=== PATIENT | male | born 1970 | race Caucasian/White ===

== ENCOUNTER 2017-12-29 22:39 | Emergency (ER) | payer BC ==
--- NOTE | 2017-12-29 23:00 | Emergency Department Record ---
History of Present Illness - General Chief complaint: Pain Stated complaint: SHOULDER INJURY Time Seen by Provider: 12/29/17 22:41 Source: Patient Mode of Arrival: Ambulatory Limitations: No limitations - History of Present Illness Initial comments: 47 yo male presents to ED for evaluation of left shoulder pain symptoms that began 1 week ago. Patient reports that he performs a lot of lifting at work of parts above his head, reports that he may have injured the shoulder while at work. Patient denies weakness to the extremity, numbness, or tingling. Patient denies health problems at his baseline. MD Complaint: Joint pain Onset/Timin -: Week(s) Location: Left, Shoulder Severity scale (1-10): 8 Quality: Aching Consistency: Constant Improves with: Nothing Worsens with: Nothing - Related Data Previous Rx's Medication Instructions Recorded Ibuprofen [Motrin] 800 mg PO Q6H PRN #30 tab 12/29/17 Allergies Allergy/AdvReac Type Severity Reaction Status Date / Time No Known Drug Allergies Allergy Verified 12/29/17 22:47 Travel Screening - Travel/Exposure Within Last 30 Days Have you traveled within the last 30 days?: No Review of Systems Constitutional: Denies: Chills, Fever, Malaise, Night sweats Eyes: Denies: Eye discharge, Eye pain ENT: Denies: Congestion, Ear pain, Epistaxis Respiratory: Denies: Cough, Dyspnea Cardiovascular: Denies: Chest pain, Dyspnea on exertion Endocrine: Denies: Fatigue, Heat or cold intolerance Gastrointestinal: Denies: Abdominal pain, Nausea, Vomiting Genitourinary: Denies: Incontinence, Retention Musculoskeletal: Reports: Arthralgia. Denies: Back pain, Gout, Joint swelling Skin: Denies: Bruising, Change in color Neurological: Denies: Abnormal gait, Confusion, Headache, Seizure Psychiatric: Denies: Anxiety Hematological/Lymphatic: Denies: Anemia, Blood Clots Past Medical History - SOCIAL HISTORY Smoking Status: Current every day smoker Alcohol Use: None Drug Use: None - RESPIRATORY Hx Respiratory Disorders: No - CARDIOVASCULAR Hx Cardio Disorders: No - NEURO Hx Neuro Disorders: No - GI Hx GI Disorders: No - Hx Genitourinary Disorders: No - ENDOCRINE Hx Endocrine Disorders: No - MUSCULOSKELETAL Hx Musculoskeletal Disorders: No - PSYCH Hx Psych Problems: No - HEMATOLOGY/ONCOLOGY Hx Hematology/Oncology Disorders: No Family Medical History Any Significant Family History?: No Hx Cancer: Father Hx Diabetes: Mother Physical Exam - General General Appearance: Alert, Oriented x3, Cooperative, No acute distress Limitations: No limitations - Head Head exam: Atraumatic, Normocephalic, Normal inspection Head exam detail: negative: Abrasion, Contusion, Crain's sign, General tenderness, Hematoma, Laceration - Eye Eye exam: Normal appearance. negative: Conjunctival injection, Periorbital swelling, Periorbital tenderness, Scleral icterus - ENT Ear exam: negative: Auricular hematoma, Auricular trauma Nasal Exam: negative: Active bleeding, Discharge, Dried blood, Foreign body Mouth exam: negative: Drooling, Laceration, Tongue elevation - Neck Neck exam: Normal inspection. negative: Meningismus, Tenderness - Respiratory Respiratory exam: Normal lung sounds bilaterally. negative: Rales, Respiratory distress, Rhonchi, Stridor - Cardiovascular Cardiovascular Exam: Regular rate, Normal rhythm, Normal heart sounds Peripheral Pulses: 3+: Radial (L) - GI/Abdominal GI/Abdominal exam: Soft. negative: Rebound, Rigid, Tenderness - Rectal Rectal exam: Deferred - exam: Deferred - Extremities Extremities exam: Full ROM, Other (Mild crepitation with ROM, FROM actively, strong DPP). negative: Calf tenderness, Pedal edema, Tenderness - Back Back exam: Denies: CVA tenderness (R), CVA tenderness (L) - Neurological Neurological exam: Alert, Normal gait, Oriented X3 - Psychiatric Psychiatric exam: Normal affect, Normal mood - Skin Skin exam: Normal color. negative: Abrasion Type of lesion: negative: abrasion Course Vital Signs 12/29/17 22:45 Temperature 97.8 F Pulse Rate [ 83 Pulse Ox Probe] Respiratory 20 Rate Blood Pressure 128/91 [Left Arm] Pulse Ox 97 - Reevaluation(s) Reevaluation #1: 12/29/17 23:13 Left shoulder: Mild degenerative changes, nothing acute. Patient was updated on his radiology results, recommended Motrin 800 mg as needed as well as reduction in overhead at work. Patient agrees with the plan of care as directed. 12/29/17 23:14 Disposition Disposition: Discharge Clinical Impression: Shoulder pain, acute Qualifiers: Laterality: left Qualified Code(s): M25.512 - Pain in left shoulder Disposition: Home, Self-Care Condition: (2) Stable Instructions: Shoulder Pain (ED) Additional Instructions: Return to ED if your symptoms worsen or if you have any concerns. Motrin 800 mg as needed for pain. Decrease overhead extremity use at work. Follow-up with employee health in 1-3 days as directed. Prescriptions: Ibuprofen [Motrin] 800 mg PO Q6H PRN #30 tab PRN Reason: Pain - Moderate (5-7) Forms: Patient Portal Access Time of Disposition: 23:00 Quality - Quality Measures Quality Measures: N/A - Blood Pressure Screening Does Patient Have Any of the Following: No Blood Pressure Classification: Hypertensive Reading Systolic Measurement: 128 Diastolic Measurement: 91 Screening for High Blood Pressure: < First Hypertensive BP, F/U Documented > [ G8950] First Hypertensive Follow-up Interventions: Referral to alternative/primary care provider.
[2017-12-29] MEDS ORDERED: IBUPROFEN 400 MG TABLET PO ONE (23:24)
--- NOTE | 2017-12-31 14:48 | RADIOLOGY REPORT ---
EXAM: LEFT SHOULDER HISTORY: PAIN. TECHNIQUE: Three views of the left shoulder were performed. FINDINGS: No evidence of fracture or dislocation. No lytic or blastic lesion. IMPRESSION: NEGATIVE LEFT SHOULDER EXAMINATION. JOB NUMBER: [id number] [facility]
== END 2017-12-29 23:27 | disposition home or self-care (01) ==
LOC: ER 22:39
DX: M25.512 Pain in left shoulder (principal); F17.210 Nicotine dependence, cigarettes, uncomplicated
CPT/HCPCS: 99283

== ENCOUNTER 2018-01-13 17:06 | Emergency (ER) | payer BC ==
--- NOTE | 2018-01-13 18:48 | Emergency Department Record ---
History of Present Illness - General Chief complaint: Pain Stated complaint: LT SHOULDER PAIN Time Seen by Provider: 01/13/18 18:41 Mode of Arrival: Ambulatory - History of Present Illness Initial comments: left shoulder pain and it has been going on for three weeks and seen both in ED and xray negative for fracture and seen at [facility] care and he is motrin 800 three times a day. Onset/Timin -: Week(s) Location: Left, Shoulder - Related Data Home Medications Medication Instructions Recorded Confirmed Last Taken Ibuprofen [Motrin] 800 mg PO Q6H PRN 01/13/18 01/13/18 01/13/18 08:00 Previous Rx's Medication Instructions Recorded Cyclobenzaprine HCl [Flexeril] 10 mg PO TID #30 tablet 01/13/18 Allergies Allergy/AdvReac Type Severity Reaction Status Date / Time No Known Drug Allergies Allergy Unverified 01/08/18 17:50 Travel Screening - Travel/Exposure Within Last 30 Days Have you traveled within the last 30 days?: No - Travel/Exposure Within Last Year Have you traveled outside the [place] in the last year?: No - Additonal Travel Details Have you been exposed to anyone with a communicable illness?: No - Travel Symptoms Symptom Screening: None Review of Systems Reviewed: No additional complaints except as noted below Constitutional: Reports: As per HPI. Denies: Chills, Fever, Malaise, Night sweats, Weakness, Weight change Eyes: Reports: As per HPI. Denies: Eye discharge, Eye pain, Photophobia, Vision change ENT: Reports: As per HPI. Denies: Congestion, Dental pain, Ear pain, Epistaxis , Hearing loss, Throat pain Respiratory: Reports: As per HPI. Denies: Cough, Dyspnea, Hemoptysis, Stridor, Wheezes Cardiovascular: Reports: As per HPI. Denies: Arrhythmia, Chest pain, Dyspnea on exertion, Edema, Murmurs, Orthopnea, Palpitations, Paroxysmal nocturnal dyspnea, Rheumatic Fever, Syncope Endocrine: Reports: As per HPI. Denies: Fatigue, Heat or cold intolerance, Polydipsia, Polyuria Gastrointestinal: Reports: As per HPI. Denies: Abdominal pain, Constipation, Diarrhea, Hematemesis, Hematochezia, Melena, Nausea, Vomiting Genitourinary: Reports: As per HPI. Denies: Dysuria, Frequency, Hematuria, Incontinence, Retention, Testicular pain, Testicular mass, Urgency Musculoskeletal: Reports: As per HPI. Denies: Arthralgia, Back pain, Gout, Joint swelling, Myalgia, Neck pain Skin: Reports: As per HPI. Denies: Bruising, Change in color, Change in hair/ nails, Lesions, Pruritus, Rash Neurological: Reports: As per HPI. Denies: Abnormal gait, Confusion, Headache, Numbness, Paresthesias, Seizure, Tingling, Tremors, Vertigo, Weakness Psychiatric: Reports: As per HPI. Denies: Anxiety, Auditory hallucinations, Depression, Homicidal thoughts, Suicidal thoughts, Visual hallucinations Hematological/Lymphatic: Reports: As per HPI. Denies: Anemia, Blood Clots, Easy bleeding, Easy bruising, Swollen glands Past Medical History - SOCIAL HISTORY Smoking Status: Current every day smoker Alcohol Use: None Drug Use: None - RESPIRATORY Hx Respiratory Disorders: No - CARDIOVASCULAR Hx Cardio Disorders: No - NEURO Hx Neuro Disorders: No - GI Hx GI Disorders: No - Hx Genitourinary Disorders: No - ENDOCRINE Hx Endocrine Disorders: No - MUSCULOSKELETAL Hx Musculoskeletal Disorders: No - PSYCH Hx Psych Problems: No - HEMATOLOGY/ONCOLOGY Hx Hematology/Oncology Disorders: No Family Medical History Any Significant Family History?: Yes Hx Cancer: Father Hx Diabetes: Mother Physical Exam - General General Appearance: Alert, Oriented x3, Cooperative, No acute distress - Head Head exam: Normal inspection - Eye Eye exam: Normal appearance, PERRL Pupils: Normal accommodation - ENT ENT exam: Normal exam, Mucous membranes moist, Normal external ear exam, Normal orophraynx, TM's normal bilaterally Ear exam: Normal external inspection. negative: External canal tenderness Nasal Exam: Normal inspection. negative: Discharge, Sinus tenderness Mouth exam: Normal external inspection, Tongue normal Teeth exam: Normal inspection. negative: Dental caries Throat exam: Normal inspection. negative: Tonsillar erythema, Tonsillar exudate - Neck Neck exam: Normal inspection, Full ROM. negative: Tenderness - Respiratory Respiratory exam: Normal lung sounds bilaterally. negative: Respiratory distress - Cardiovascular Cardiovascular Exam: Regular rate, Normal rhythm, Normal heart sounds - GI/Abdominal GI/Abdominal exam: Soft, Normal bowel sounds. negative: Tenderness - Rectal Rectal exam: Deferred - exam: Deferred - Extremities Extremities exam: Normal inspection, Full ROM, Normal capillary refill. negative: Tenderness - Back Back exam: Reports: Normal inspection, Full ROM. Denies: Muscle spasm, Rash noted, Tenderness - Neurological Neurological exam: Alert, Normal gait, Oriented X3, Reflexes normal - Psychiatric Psychiatric exam: Normal affect, Normal mood - Skin Skin exam: Dry, Intact, Normal color, Warm Course Vital Signs 01/13/18 18:20 Temperature 98.0 F Pulse Rate [ 80 Pulse Ox Probe] Respiratory 20 Rate Blood Pressure 121/76 [Left Arm] Pulse Ox 95 Disposition Clinical Impression: Left shoulder pain Qualifiers: Chronicity: acute Qualified Code(s): M25.512 - Pain in left shoulder Left shoulder strain Qualifiers: Encounter type: initial encounter Qualified Code(s): S46.912A - Strain of unspecified muscle, fascia and tendon at shoulder and upper arm level, left arm , initial encounter Disposition: Home, Self-Care Condition: (1) Good Instructions: Muscle Strain (ED) Additional Instructions: follow up with family in 1 week continue motrin three times a day Prescriptions: Cyclobenzaprine HCl [Flexeril] 10 mg PO TID #30 tablet Time of Disposition: 18:51 Quality - Quality Measures Quality Measures: N/A - Blood Pressure Screening Does Patient Have Any of the Following: No Blood Pressure Classification: Pre-Hypertensive BP Reading Systolic Measurement: 121 Diastolic Measurement: 76 Screening for High Blood Pressure: < Pre-Hypertensive BP, F/U Documented > [ G8950] Pre-Hypertensive Follow-up Interventions: Referral to alternative/primary care provider.
== END 2018-01-13 19:16 | disposition home or self-care (01) ==
LOC: ER 17:06
DX: S46.912A Strain of unspecified muscle, fascia and tendon at shoulder and upper arm level, left arm, initial encounter (principal); X58.XXXA Exposure to other specified factors, initial encounter; F17.210 Nicotine dependence, cigarettes, uncomplicated
CPT/HCPCS: 99282

== ENCOUNTER 2018-05-23 17:22 | Emergency (ER) | payer SELFPAY ==
--- NOTE | 2018-05-23 18:03 | Emergency Department Record ---
History of Present Illness - General Chief Complaint: Cough Stated Complaint: LOSS OF VOICE AFTER COUGHING,DIZINESS,HEADACHE Time Seen by Provider: 05/23/18 17:41 Source: Patient Mode of Arrival: Ambulatory Limitations: No limitations - History of Present Illness Initial Comments: 47 yo male presents with three weeks of fatigue and horse voice. He states he was eating meat 3 weeks ago. He choked on the meat but was abut to spit it out. Since then his voice has been hoarse. No shortness of breath, no choking again, no pain. He is able to eat normally and swallow normally. No fever. He is fatigued as well. He was told to have his CO level checks by the [employer]. They charge $80 to check the house so he decided to come to the ED. No syncope, no chest pain. His SO is in the ED as well. Complaint: Other Onset/Timin -: Days(s) Severity: Mild Consistency: Constant Improves With: Nothing Worsens With: Nothing Context: Other Associated Symptoms: Other Treatments Prior to Arrival: None - Related Data Home Medications Medication Instructions Recorded Confirmed Last Taken No Home Med [NO HOME MEDS] 05/23/18 05/23/18 Unknown Allergies Allergy/AdvReac Type Severity Reaction Status Date / Time No Known Drug Allergies Allergy Unverified 01/08/18 17:50 Travel Screening - Travel/Exposure Within Last 30 Days Have you traveled within the last 30 days?: No Review of Systems Constitutional: Reports: Malaise. Denies: Chills, Fever, Weakness Eyes: Denies: Eye discharge ENT: Reports: Other (no pain, hoarse voice). Denies: Congestion, Dental pain, Ear pain, Epistaxis, Throat pain Respiratory: Denies: Cough Cardiovascular: Denies: Chest pain, Syncope Endocrine: Reports: Fatigue. Denies: Polydipsia, Polyuria Gastrointestinal: Denies: Abdominal pain, Diarrhea, Nausea, Vomiting Genitourinary: Denies: Dysuria, Frequency Musculoskeletal: Denies: Arthralgia, Back pain, Myalgia Skin: Denies: Bruising, Change in color, Rash Neurological: Denies: Confusion, Headache, Weakness Psychiatric: Denies: Anxiety Hematological/Lymphatic: Denies: Easy bleeding, Easy bruising Past Medical History - SOCIAL HISTORY Smoking Status: Current every day smoker - RESPIRATORY Hx Respiratory Disorders: No - CARDIOVASCULAR Hx Cardio Disorders: No - NEURO Hx Neuro Disorders: No - GI Hx GI Disorders: No - Hx Genitourinary Disorders: No - ENDOCRINE Hx Endocrine Disorders: No - MUSCULOSKELETAL Hx Musculoskeletal Disorders: No - PSYCH Hx Psych Problems: No - HEMATOLOGY/ONCOLOGY Hx Hematology/Oncology Disorders: No Family Medical History Any Significant Family History?: Yes Hx Cancer: Father Hx Diabetes: Mother Physical Exam - General General Appearance: Alert, Oriented x3, Cooperative, No acute distress Limitations: No limitations - Head Head exam: Atraumatic, Normocephalic, Normal inspection - Eye Eye exam: Normal appearance, PERRL. negative: Conjunctival injection, Scleral icterus - ENT ENT exam: Normal exam, Mucous membranes moist Ear exam: Normal external inspection Nasal Exam: Normal inspection Mouth exam: Normal external inspection, Tongue normal, Other (mild hoarse voice , easy to understand). negative: Drooling, Laceration, Muffled voice, Tongue elevation Teeth exam: Normal inspection Throat exam: Normal inspection. negative: Tonsillar erythema, Tonsillomegaly, Tonsillar exudate, R peritonsillar mass, L peritonsillar mass - Neck Neck exam: Normal inspection, Full ROM. negative: Tenderness - Respiratory Respiratory exam: Normal lung sounds bilaterally. negative: Accessory muscle use, Chest wall tenderness, Decreased breath sounds, Prolonged expiratory, Respiratory distress, Rhonchi, Stridor, Wheezes - Cardiovascular Cardiovascular Exam: Regular rate, Normal rhythm, Normal heart sounds - GI/Abdominal GI/Abdominal exam: Soft - Extremities Extremities exam: Normal inspection - Neurological Neurological exam: Alert, Oriented X3 - Psychiatric Psychiatric exam: Normal affect, Normal mood - Skin Skin exam: Dry, Intact, Normal color, Warm Course Vital Signs 05/23/18 17:31 Temperature 98.8 F Pulse Rate 85 Respiratory 18 Rate Blood Pressure 115/74 Pulse Ox 96 - Reevaluation(s) Reevaluation #1: 05/23/18 18:03 Normal vitals on review 05/23/18 18:40 Soft tissue neck is negative Awaiting labs 05/23/18 18:51 No acute changes on the CBC 05/23/18 19:16 7.5 CO in a pack per day smoker. This mildly elevated but normal for a smoker Medical Decision Making - Lab Data Result diagrams: 05/23/18 18:10 05/23/18 18:10 Disposition Disposition: Discharge Clinical Impression: Dysphonia Fatigue Qualifiers: Fatigue type: unspecified Qualified Code(s): R53.83 - Other fatigue Disposition: Home, Self-Care Condition: (1) Good Instructions: Fatigue (ED) Additional Instructions: Call the number provided for a new family doctor Return if worse, cough, short of breath or any new concerns Referrals: SIERRA GO [MEDICAL DOCTOR] - Forms: Patient Portal Access Time of Disposition: 19:35 Quality - Quality Measures Quality Measures: N/A - Blood Pressure Screening Does Patient Have Any of the Following: No Blood Pressure Classification: Normal BP Reading Systolic Measurement: 115 Diastolic Measurement: 74 Screening for High Blood Pressure: < Normal BP, F/U Not Required > [G8783]
[2018-05-23 18:45] LABS: BASO % 0.3 % (0-6); EOS % 1.4 % (0-6); GRAN % 68.2 % (47-80); HEMATOCRIT 47.9 % (42.0-52.0); HEMOGLOBIN 17.4 gm/dl (14.0-18.0); MEAN CELL VOLUME 93.4 fl (81-97); MEAN CORPUSCULAR HEMOGLOBIN 33.9 pg (27-33); MEAN CORPUSCULAR HGB CONC 36.3 g/dl (32-36); MEAN PLATELET VOLUME 10.5 fl (7.4-10.4); MONO % 8.1 % (0-9); PLATELET COUNT 140 K/uL (130-400); RED BLOOD COUNT 5.13 M/uL (4.40-5.70); RED CELL DISTRIBUTION WIDTH 12.5 % (11.5-14.5); WHITE BLOOD COUNT W/O DIFF 11.8 K/uL (4.2-12.2)
[2018-05-23 18:58] LABS: BLOOD UREA NITROGEN 10 mg/dL (6-20); CREATININE 0.7 mg/dL (0.7-1.2); EST GLOMERULAR FILTRATION RATE > 60 mL/min; TOTAL PROTEIN 6.9 g/dL (6.6-8.7)
[2018-05-23 19:00] LABS: GLUCOSE,RANDOM 174 mg/dL (74-109)
[2018-05-23 19:03] LABS: ALB/GLOB RATIO 1.8 (1.1-1.8); ALBUMIN 4.4 g/dL (4.0-5.0); ALKALINE PHOSPHATASE 93 U/L (40-129); ALT/SGPT 11 U/L (<41); AST/SGOT 11 U/L (10.0-50.0)
[2018-05-23 19:15] LABS: THYROID STIMULATING HORMONE 1.94 uIU/mL (0.270-4.20)
--- NOTE | 2018-05-24 15:09 | RADIOLOGY REPORT ---
EXAM: SOFT TISSUE NECK HISTORY: FOREIGN BODY. TECHNIQUE: Two views of the neck were performed. FINDINGS: Degenerative change at the C6-C7 level. The prevertebral soft tissues are normal. The epiglottis appears normal. No radiopaque foreign body. IMPRESSION: 1. NO RADIOPAQUE FOREIGN BODY IS APPRECIATED. 2. DEGENERATIVE CHANGE AT C6-C7. 3. THE EPIGLOTTIS IS NORMAL IN SIZE AND CONFIGURATION. JOB NUMBER: [id number] MTDD
== END 2018-05-23 19:51 | disposition home or self-care (01) ==
LOC: ER 17:22
DX: R49.0 Dysphonia (principal); R53.83 Other fatigue; R42 Dizziness and giddiness; R51 Headache; F17.210 Nicotine dependence, cigarettes, uncomplicated
CPT/HCPCS: 70360; 80053; 82375; 84443; 85025; 99283; 99284

== ENCOUNTER 2018-05-24 13:09 | Emergency (ER) | payer SELFPAY ==
[2018-05-24 14:45] LABS: BASO % 0.3 % (0-6); EOS % 1.5 % (0-6); GRAN % 68.4 % (47-80); HEMATOCRIT 44.1 % (42.0-52.0); HEMOGLOBIN 16.3 gm/dl (14.0-18.0); LYMPH % 21.8 % (16-45); MEAN CELL VOLUME 93.6 fl (81-97); MEAN CORPUSCULAR HEMOGLOBIN 34.6 pg (27-33); MEAN PLATELET VOLUME 10.5 fl (7.4-10.4); PLATELET COUNT 126 K/uL (130-400); RED BLOOD COUNT 4.71 M/uL (4.40-5.70); RED CELL DISTRIBUTION WIDTH 12.3 % (11.5-14.5); WHITE BLOOD COUNT W/O DIFF 7.8 K/uL (4.2-12.2)
[2018-05-24 14:59] LABS: BLOOD UREA NITROGEN 10 mg/dL (6-20); CREATININE 0.6 mg/dL (0.7-1.2); EST GLOMERULAR FILTRATION RATE > 60 mL/min
[2018-05-24 15:00] LABS: TOTAL PROTEIN 6.6 g/dL (6.6-8.7)
[2018-05-24 15:01] LABS: GLUCOSE,RANDOM 177 mg/dL (74-109)
[2018-05-24 15:04] LABS: ALB/GLOB RATIO 1.9 (1.1-1.8); ALBUMIN 4.3 g/dL (4.0-5.0); ALKALINE PHOSPHATASE 86 U/L (40-129); ALT/SGPT 11 U/L (<41); AST/SGOT 10 U/L (10.0-50.0)
[2018-05-24 15:05] LABS: ACETAMINOPHEN < 5.0 ug/mL (10.0-30.0); SALICYLATE < 0.3 mg/dL (2.8-20)
[2018-05-24 15:15] LABS: URINE APPEARANCE CLEAR; URINE BILIRUBIN NEGATIVE (NEGATIVE); URINE BLOOD NEGATIVE (NEGATIVE); URINE COLOR YELLOW; URINE KETONE NEGATIVE (NEGATIVE); URINE LEUKOCYTE ESTERASE NEGATIVE (NEGATIVE); URINE NITRITE NEGATIVE (NEGATIVE); URINE PROTEIN NEGATIVE (NEGATIVE)
--- NOTE | 2018-05-24 16:13 | Emergency Department Record ---
History of Present Illness - General Chief Complaint: Dizziness Stated Complaint: DIZINESS,UNSTABLE WALK,BUMPING INTO THINGS Time Seen by Provider: 05/24/18 13:58 Source: Patient Mode of Arrival: Wheelchair Limitations: No limitations - History of Present Illness Initial Comments: pt here because he feels funny and is having difficulty walking. he states he feels off balance. he was here last night for possible CO exposure. his level was 7.2, he is a smoker. he had c/o difficulty swallowing last night but does not voice that today. he also c/o douglas. Complaint: Dizziness, Lightheadedness Timing: Awoke with symptoms Description: Difficulty walking, Off-balance History of Same: No History of Trauma: No Severity: Mild Improves With: Nothing Worsens With: Nothing Associated Symptoms: Other - [place] Coma Scale Eye Response: (4) Open spontaneously Motor Response: (6) Obeys commands Verbal Response: (5) Oriented [place] Total: 15 - Symptoms of Stroke Symptoms of stroke: Unable to Think Clearly, Unsteady When Walking - Related Data Home Medications Medication Instructions Recorded Confirmed Last Taken Metformin HCl 1,000 mg PO BID 05/24/18 05/24/18 Unknown Allergies Allergy/AdvReac Type Severity Reaction Status Date / Time No Known Drug Allergies Allergy Unverified 01/08/18 17:50 Travel Screening - Travel/Exposure Within Last 30 Days Have you traveled within the last 30 days?: No - Travel/Exposure Within Last Year Have you traveled outside the [place] in the last year?: No - Additonal Travel Details Have you been exposed to anyone with a communicable illness?: No - Travel Symptoms Symptom Screening: None Review of Systems Reviewed: No additional complaints except as noted below Constitutional: Reports: As per HPI, Weakness. Denies: Chills, Fever, Malaise, Night sweats, Weight change Eyes: Reports: As per HPI. Denies: Eye discharge, Eye pain, Photophobia, Vision change ENT: Reports: As per HPI. Denies: Congestion, Dental pain, Ear pain, Epistaxis , Hearing loss, Throat pain Respiratory: Reports: As per HPI. Denies: Cough, Dyspnea, Hemoptysis, Stridor, Wheezes Cardiovascular: Reports: As per HPI. Denies: Arrhythmia, Chest pain, Dyspnea on exertion, Edema, Murmurs, Orthopnea, Palpitations, Paroxysmal nocturnal dyspnea, Rheumatic Fever, Syncope Endocrine: Reports: As per HPI, Fatigue. Denies: Heat or cold intolerance, Polydipsia, Polyuria Gastrointestinal: Reports: As per HPI. Denies: Abdominal pain, Constipation, Diarrhea, Hematemesis, Hematochezia, Melena, Nausea, Vomiting Genitourinary: Reports: As per HPI. Denies: Dysuria, Frequency, Hematuria, Incontinence, Retention, Testicular pain, Testicular mass, Urgency Musculoskeletal: Reports: As per HPI. Denies: Arthralgia, Back pain, Gout, Joint swelling, Myalgia, Neck pain Skin: Reports: As per HPI. Denies: Bruising, Change in color, Change in hair/ nails, Lesions, Pruritus, Rash Neurological: Reports: As per HPI, Abnormal gait, Confusion, Headache. Denies: Numbness, Paresthesias, Seizure, Tingling, Tremors, Vertigo, Weakness Psychiatric: Reports: As per HPI. Denies: Anxiety, Auditory hallucinations, Depression, Homicidal thoughts, Suicidal thoughts, Visual hallucinations Hematological/Lymphatic: Reports: As per HPI. Denies: Anemia, Blood Clots, Easy bleeding, Easy bruising, Swollen glands Past Medical History - SOCIAL HISTORY Smoking Status: Current every day smoker Alcohol Use: None Drug Use: None - RESPIRATORY Hx Respiratory Disorders: No - CARDIOVASCULAR Hx Cardio Disorders: No - NEURO Hx Neuro Disorders: No - GI Hx GI Disorders: No - Hx Genitourinary Disorders: No - ENDOCRINE Hx Endocrine Disorders: No - MUSCULOSKELETAL Hx Musculoskeletal Disorders: No - PSYCH Hx Psych Problems: No - HEMATOLOGY/ONCOLOGY Hx Hematology/Oncology Disorders: No Family Medical History Any Significant Family History?: No Hx Cancer: Father Hx Diabetes: Mother Physical Exam - General General Appearance: Alert, Oriented x3, Cooperative, Mild distress - Head Head exam: Normal inspection - Eye Eye exam: Normal appearance, PERRL, EOMI Pupils: Normal accommodation - ENT ENT exam: Normal exam, Mucous membranes moist, Normal external ear exam, Normal orophraynx Ear exam: Normal external inspection. negative: External canal tenderness Nasal Exam: Normal inspection. negative: Discharge, Sinus tenderness Mouth exam: Normal external inspection, Tongue normal Teeth exam: Normal inspection. negative: Dental caries Throat exam: Normal inspection. negative: Tonsillar erythema, Tonsillar exudate - Neck Neck exam: Normal inspection, Full ROM. negative: Tenderness - Respiratory Respiratory exam: Normal lung sounds bilaterally. negative: Respiratory distress - Cardiovascular Cardiovascular Exam: Regular rate, Normal rhythm, Normal heart sounds - GI/Abdominal GI/Abdominal exam: Soft, Normal bowel sounds. negative: Tenderness - Rectal Rectal exam: Deferred - exam: Deferred - Extremities Extremities exam: Normal inspection, Full ROM, Normal capillary refill. negative: Tenderness - Back Back exam: Reports: Normal inspection, Full ROM. Denies: Muscle spasm, Rash noted, Tenderness - Neurological Neurological exam: Abnormal gait, Alert, CN II-XII intact, Oriented X3, Other ( ataxic, misses nose w finger, closes 1 eye while talking, denies double vision) . negative: Normal gait - Psychiatric Psychiatric exam: Normal affect, Normal mood - Skin Skin exam: Dry, Intact, Normal color, Warm Course Vital Signs 05/24/18 05/24/18 05/24/18 13:32 14:30 15:00 Temperature 98.6 F Pulse Rate 78 Pulse Rate [ 71 75 Account Manager Relief ] Respiratory 18 16 16 Rate Blood Pressure 107/72 Blood Pressure 115/78 120/90 [Right Arm] Pulse Ox 96 97 96 Medical Decision Making - Lab Data Result diagrams: 05/24/18 14:34 05/24/18 14:34 Lab Results 05/24/18 05/24/18 05/24/18 Range/Units 14:34 14:34 14:34 WBC 7.8 (4.2-12.2) K/uL RBC 4.71 (4.40-5.70) M/uL Hgb 16.3 (14.0-18.0) gm/dl Hct 44.1 (42.0-52.0) % MCV 93.6 (81-97) fl MCH 34.6 H (27-33) pg MCHC 37.0 H (32-36) g/dl RDW 12.3 (11.5-14.5) % Plt Count 126 L (130-400) K/uL MPV 10.5 H (7.4-10.4) fl Gran % 68.4 (47-80) % Lymphocytes % 21.8 (16-45) % Monocytes % 8.0 (0-9) % Eosinophils % 1.5 (0-6) % Basophils % 0.3 (0-6) % Carboxyhemoglobin 7.2 H (0-1.5) % Sodium 140 (136-145) mmol/L Potassium 3.9 (3.4-4.5) mmol/L Chloride 103 (98-107) mmol/L Carbon Dioxide 26.0 (22-29) mmol/L Anion Gap 11.0 (7-16) BUN 10 (6-20) mg/dL Creatinine 0.6 L (0.7-1.2) mg/dL Estimated GFR > 60 mL/min Random Glucose 177 H (74-109) mg/dL Calcium 9.0 (8.6-10.0) mg/dL Total Bilirubin 0.60 (0.2-1.0) mg/dL AST 10 (10.0-50.0) U/L ALT 11 (<41) U/L Alkaline Phosphatase 86 (40-129) U/L Total Protein 6.6 (6.6-8.7) g/dL Albumin 4.3 (4.0-5.0) g/dL Globulin 2.3 (1.4-4.8) gm/dL Albumin/Globulin Ratio 1.9 H (1.1-1.8) Urine Color Urine Appearance Urine pH (5.0-8.0) Ur Specific [place] (1.002-1.030) Urine Protein (NEGATIVE) Urine Glucose (UA) (NEGATIVE) Urine Ketones (NEGATIVE) Urine Blood (NEGATIVE) Urine Nitrite (NEGATIVE) Urine Bilirubin (NEGATIVE) Urine Urobilinogen (0.20 - 1.00) E.U./dL Ur Leukocyte Esterase (NEGATIVE) Salicylates < 0.3 L (2.8-20) mg/dL Acetaminophen < 5.0 L (10.0-30.0) ug/mL 05/24/18 Range/Units 15:10 WBC (4.2-12.2) K/uL RBC (4.40-5.70) M/uL Hgb (14.0-18.0) gm/dl Hct (42.0-52.0) % MCV (81-97) fl MCH (27-33) pg MCHC (32-36) g/dl RDW (11.5-14.5) % Plt Count (130-400) K/uL MPV (7.4-10.4) fl Gran % (47-80) % Lymphocytes % (16-45) % Monocytes % (0-9) % Eosinophils % (0-6) % Basophils % (0-6) % Carboxyhemoglobin (0-1.5) % Sodium (136-145) mmol/L Potassium (3.4-4.5) mmol/L Chloride (98-107) mmol/L Carbon Dioxide (22-29) mmol/L Anion Gap (7-16) BUN (6-20) mg/dL Creatinine (0.7-1.2) mg/dL Estimated GFR mL/min Random Glucose (74-109) mg/dL Calcium (8.6-10.0) mg/dL Total Bilirubin (0.2-1.0) mg/dL AST (10.0-50.0) U/L ALT (<41) U/L Alkaline Phosphatase (40-129) U/L Total Protein (6.6-8.7) g/dL Albumin (4.0-5.0) g/dL Globulin (1.4-4.8) gm/dL Albumin/Globulin Ratio (1.1-1.8) Urine Color Yellow Urine Appearance Clear Urine pH 6.0 (5.0-8.0) Ur Specific [place] 1.020 (1.002-1.030) Urine Protein Negative (NEGATIVE) Urine Glucose (UA) 500 mg/dl H (NEGATIVE) Urine Ketones Negative (NEGATIVE) Urine Blood Negative (NEGATIVE) Urine Nitrite Negative (NEGATIVE) Urine Bilirubin Negative (NEGATIVE) Urine Urobilinogen 1.0 (0.20 - 1.00) E.U./dL Ur Leukocyte Esterase Negative (NEGATIVE) Salicylates (2.8-20) mg/dL Acetaminophen (10.0-30.0) ug/mL Disposition Disposition: Transfer Clinical Impression: Brain metastases Disposition: Acute Care Hospital Transfer Transfer To: [facility] Reason For Transfer: needs neurosurgery, neurology Accepting Physician: bonnie scales and becki Time Discussed w/Accepting Physician: 16:34 Quality - Quality Measures Quality Measures: N/A - Blood Pressure Screening Does Patient Have Any of the Following: No Blood Pressure Classification: Normal BP Reading Systolic Measurement: 107 Diastolic Measurement: 72 Screening for High Blood Pressure: < Normal BP, F/U Not Required > [G8783]
[2018-05-24] MEDS: DEXAMETHASONE SOD PHOSPHATE 10MG/ML VIAL IVP ONE (16:15)
--- NOTE | 2018-05-25 13:34 | CT SCAN REPORT ---
EXAM: HEAD CT WITHOUT CONTRAST HISTORY: DIZZINESS FOR TWO DAYS, NO KNOWN INJURY. TECHNIQUE: Axial CT scan of the head was performed without IV contrast. Comparison: None. FINDINGS: No definite acute intracranial hemorrhage identified, however, there is abnormal low attenuation in the left posterior parietal and occipital lobes with a suggestion of underlying left parietal and occipital masses measuring about 2.6 cm in the posterior left parietal region and 3.1 cm in the left occipital region. There is some low attenuation high in the right parietal region as well with no obvious underlying mass although possibly a small mass about 1 cm in size. There also appears to be some low attenuation about 1 cm in size in the region of the left side of the mid brain. These findings are worrisome for the possibility of either metastatic disease or possibly multiple intracranial abscesses. Follow-up brain MRI with contrast may be useful for further evaluation if not contraindicated. There is minor midline shift from left to right of the septum pellucidum by about 2-3 mm. There is some effacement of the cortical sulci on the left compared to the right as well. Spina bifida of C1 posteriorly incidentally noted. Cyst or polyp floor of the right maxillary antrum. Next to the small area of low attenuation in the left mid brain there is a very small area of slight hyperdensity about 4.5 mm in size which is nonspecific although may be a small mass associated with the adjacent low attenuation. This could also be assessed at the time of an MRI. IMPRESSION: 1. NUMEROUS AREAS OF ABNORMAL LOW ATTENUATION INTRACRANIALLY WHICH MAY REPRESENT VASOGENIC EDEMA, INCLUDING REGIONS OF THE LEFT PARIETAL OCCIPITAL LOBES, RIGHT PARIETAL LOBE, AND LEFT SIDE OF THE MID BRAIN. FOLLOW-UP MRI WITH CONTRAST SUGGESTED FOR FURTHER EVALUATION. SOME ASSOCIATED MASS EFFECT PREDOMINANTLY ON THE LEFT WITH EFFACEMENT OF NUMEROUS CORTICAL SULCI FAIRLY DIFFUSELY ON THE LEFT AND WITH SLIGHT MIDLINE SHIFT OF SEPTUM PELLUCIDUM FROM LEFT TO RIGHT BY ABOUT 2-3 MM. 2. CYST OR POLYP FLOOR OF THE RIGHT MAXILLARY ANTRUM. 3. SPINA BIFIDA POSTERIORLY C1. JOB NUMBER: [id number] AND [id number] [facility]
== END 2018-05-24 18:16 | disposition short-term general hospital (02) ==
LOC: ER 13:09
DX: C80.1 Malignant (primary) neoplasm, unspecified (principal); C79.31 Secondary malignant neoplasm of brain; R51 Headache; R42 Dizziness and giddiness; R26.2 Difficulty in walking, not elsewhere classified; F17.210 Nicotine dependence, cigarettes, uncomplicated
CPT/HCPCS: 99285 ×2; 96374; 85025; 82375; 80053; 81003; 70450; 93005; 93010; G0480 ×2; J1100; 80329

== ENCOUNTER 2018-06-23 23:48 | Inpatient (IN) | payer MEDICAID ==
[2018-06-24] MEDS ORDERED: ONDANSETRON HCL IV 4 MG/2 ML VIAL IV ONE (00:12)
[2018-06-24] MEDS ORDERED: SUCRALFATE 1 G/10 ML UD PO ONE (00:13)
--- NOTE | 2018-06-24 00:17 | Emergency Department Record ---
History of Present Illness - General Chief complaint: Dehydration Stated complaint: "HAVING DEEP HICCUPS, NEED WATER" Time Seen by Provider: 06/24/18 00:04 Source: Patient, Family Mode of Arrival: Ambulatory Limitations: No limitations - History of Present Illness Initial comments: The patient is here due to having severe hiccups for the last 10 hours. The hiccups are coming every minute or so and he has had them in the past. There has been no new cough, CP, or any vomiting or diarrhea but he has had mild epigastric discomfort. The patient does have a recent hx of Lung CA with brain Mets and has had XRT of his brain recently. He denies any new pain, visual changes, confusion or any balance issues. The patient's family state he has been walking slowly since being home over the last 3 weeks and he is not due for any chemo or XRT until next week. Onset/Timin -: Hour(s) Associated Symptoms: Other - Related Data Home Medications Medication Instructions Recorded Confirmed Last Taken Folic Acid 1 mg PO DAILY 06/23/18 06/24/18 Unknown Allergies Allergy/AdvReac Type Severity Reaction Status Date / Time No Known Drug Allergies Allergy Unverified 06/17/18 08:01 Travel Screening - Travel/Exposure Within Last 30 Days Have you traveled within the last 30 days?: No Review of Systems Constitutional: Denies: Chills, Fever Eyes: Denies: Eye discharge ENT: Denies: Congestion Respiratory: Denies: Cough, Dyspnea Cardiovascular: Denies: Arrhythmia, Chest pain Endocrine: Denies: Fatigue Gastrointestinal: Reports: Nausea. Denies: Diarrhea, Vomiting Genitourinary: Denies: Dysuria Musculoskeletal: Denies: Arthralgia Past Medical History - SOCIAL HISTORY Smoking Status: Light tobacco smoker (<10/day) Alcohol Use: None Drug Use: None - RESPIRATORY Hx Respiratory Disorders: No - CARDIOVASCULAR Hx Cardio Disorders: No - NEURO Hx Neuro Disorders: Yes Hx Brain Tumor: Yes - GI Hx GI Disorders: Yes Hx Reflux: Yes - Hx Genitourinary Disorders: No - ENDOCRINE Hx Endocrine Disorders: Yes Hx Diabetes: Yes (DM2) - MUSCULOSKELETAL Hx Musculoskeletal Disorders: No - PSYCH Hx Psych Problems: Yes Hx Anxiety: Yes - HEMATOLOGY/ONCOLOGY Hx Hematology/Oncology Disorders: Yes Hx Cancer: Yes (Lung w/ mets to brain) Hx Chemotherapy: No Hx Radiation Therapy: Yes Family Medical History Any Significant Family History?: Yes Hx Cancer: Father Hx Diabetes: Mother Physical Exam - General General Appearance: Alert, Cooperative, No acute distress - Head Head exam: Atraumatic, Normocephalic, Normal inspection - Eye Eye exam: Normal appearance, PERRL, EOMI - ENT Throat exam: Normal inspection. negative: Tonsillar erythema, Tonsillar exudate - Neck Neck exam: Normal inspection, Full ROM. negative: Tenderness - Respiratory Respiratory exam: Normal lung sounds bilaterally. negative: Respiratory distress - Cardiovascular Cardiovascular Exam: Regular rate, Normal rhythm, Normal heart sounds - GI/Abdominal GI/Abdominal exam: Soft, Normal bowel sounds. negative: Tenderness - Extremities Extremities exam: Normal inspection, Full ROM, Normal capillary refill. negative: Tenderness - Back Back exam: Reports: Normal inspection - Neurological Neurological exam: Alert, Oriented X3. negative: Altered, Motor sensory deficit Course Vital Signs 06/23/18 23:55 Temperature 98.1 F Pulse Rate [ 84 Pulse Ox Probe] Respiratory 24 Rate Blood Pressure 114/83 [Left Arm] Pulse Ox 94 L - Reevaluation(s) Reevaluation #1: The patient is doing much better at this time. His hiccups have resolved and he is resting comfortably. 06/24/18 00:40 Reevaluation #2: The patient states his hiccups have returned. He denies any pain or discomfort. I did discuss the positive Lipase with the patient and the need for an abdominal CT. 06/24/18 01:31 Reevaluation #3: The patient is doing a lot better at this time. His hiccups have stopped and he is presently sleeping. 06/24/18 02:01 Reevaluation #4: The patient is doing very well at this time. He is answering all questions appropriately and denies any pain, discomfort, or nausea. Due to the Lipase being significantly elevated I do recommend hospital admission and the patient does agree to that. We will admit the patient to his PCP Dr. Florez who will see him today on the floor. 06/24/18 02:25 Medical Decision Making - Data Complexity MDM Data: X-Ray Ordered and/or Reviewed - Lab Data Result diagrams: 06/24/18 00:20 06/24/18 00:20 - Radiology Data Radiology results: Report reviewed (Abd CT: Neg for any acute abdominal pathology.) Disposition Disposition: Admit Clinical Impression: Pancreatitis, acute Qualifiers: Pancreatitis type: unspecified pancreatitis type Acute pancreatitis complication: unspecified Qualified Code(s): K85.90 - Acute pancreatitis without necrosis or infection, unspecified Disposition: Still a Patient at [facility] Decision to Admit: Admit from ER Decision to Admit Date: 06/24/18 Decision to Admit Time: : Accepting Physician: Vikki Time Discussed w/Accepting Physician: : Condition: (2) Stable Time of Disposition: Quality - Quality Measures Quality Measures: N/A - Blood Pressure Screening View Details: Yes Does Patient Have Any of the Following: No Blood Pressure Classification: Normal BP Reading Systolic Measurement: 115 Diastolic Measurement: 73 Screening for High Blood Pressure: < Normal BP, F/U Not Required > [G8783]
[2018-06-24] MEDS: SODIUM CHLORIDE 0.9% 500 ML IV ONE (00:18)
[2018-06-24 00:43] LABS: HEMATOCRIT 44.9 % (42.0-52.0); HEMOGLOBIN 16.3 gm/dl (14.0-18.0); MEAN CELL VOLUME 90.9 fl (81-97); MEAN CORPUSCULAR HGB CONC 36.3 g/dl (32-36); MEAN PLATELET VOLUME 10.1 fl (7.4-10.4); PLATELET COUNT 69 K/uL (130-400); RED BLOOD COUNT 4.94 M/uL (4.40-5.70); RED CELL DISTRIBUTION WIDTH 12.6 % (11.5-14.5); WHITE BLOOD COUNT W/O DIFF 10.9 K/uL (4.2-12.2)
[2018-06-24 00:53] LABS: BLOOD UREA NITROGEN 19 mg/dL (6-20); CREATININE 0.5 mg/dL (0.7-1.2); EST GLOMERULAR FILTRATION RATE > 60 mL/min
[2018-06-24 00:54] LABS: TOTAL PROTEIN 6.2 g/dL (6.6-8.7)
[2018-06-24 00:56] LABS: GLUCOSE,RANDOM 354 mg/dL (74-109)
[2018-06-24 00:58] LABS: ALBUMIN 3.9 g/dL (4.0-5.0); ALT/SGPT 38 U/L (<41); AST/SGOT 15 U/L (10.0-50.0)
[2018-06-24 00:59] LABS: ALKALINE PHOSPHATASE 83 U/L (40-129)
[2018-06-24 01:00] LABS: BILIRUBIN,DIRECT < 0.2 mg/dL (0-0.3)
[2018-06-24 01:04] LABS: PLATELET ESTIMATE DECREASED (NORMAL)
[2018-06-24] MEDS ORDERED: METOCLOPRAMIDE HCL 10 MG/2 ML VIAL IVP ONE (01:05)
[2018-06-24] MEDS ORDERED: DIPHENHYDRAMINE HCL 50 MG/ML VIAL IVP ONE (01:05)
[2018-06-24] MEDS ORDERED: HUMULIN R 100 UNIT/ML VIAL SQ ONE (02:27)
[2018-06-24] MEDS ORDERED: VENLAFAXINE ER 37.5 MG CAPSULE PO SCH (03:07)
[2018-06-24] MEDS ORDERED: POTASSIUM CHLORIDE/D5-0.9%NACL 20 MEQ/1,000 ML BAG IV ONE (03:07)
[2018-06-24] MEDS ORDERED: ONDANSETRON HCL IV 4 MG/2 ML VIAL IVP PRN (03:07)
[2018-06-24] MEDS: PANTOPRAZOLE SODIUM IV 40 MG VIAL IVP SCH (03:56)
[2018-06-24 06:21] LABS: HEMOGLOBIN 15.2 gm/dl (14.0-18.0); MEAN CELL VOLUME 91.3 fl (81-97); MEAN CORPUSCULAR HGB CONC 36.2 g/dl (32-36); MEAN PLATELET VOLUME 9.9 fl (7.4-10.4); PLATELET COUNT 63 K/uL (130-400); RED CELL DISTRIBUTION WIDTH 12.5 % (11.5-14.5); WHITE BLOOD COUNT W/O DIFF 8.5 K/uL (4.2-12.2)
[2018-06-24 06:27] LABS: PLATELET ESTIMATE DECREASED (NORMAL)
[2018-06-24 06:40] LABS: BLOOD UREA NITROGEN 17 mg/dL (6-20); CREATININE 0.5 mg/dL (0.7-1.2); EST GLOMERULAR FILTRATION RATE > 60 mL/min; GLUCOSE,RANDOM 244 mg/dL (74-109); LIPASE 162 U/L (13-60)
[2018-06-24 06:50] LABS: LIPASE 411 U/L (13-60)
[2018-06-24] MEDS ORDERED: DEXAMETHASONE 4 MG MC SCH (09:15)
--- NOTE | 2018-06-24 10:18 | CT SCAN REPORT ---
EXAM: CT of the ABDOMEN AND PELVIS WITHOUT CONTRAST HISTORY: ABDOMINAL PAIN. TECHNIQUE: Sequential axial images were obtained from the diaphragms through the ischiorectal fossa without intravenous or oral contrast administration. FINDINGS: The visualized lung bases appear normal. There is a small pericardial effusion. Nonopacified liver appears normal. The gallbladder is contracted. The pancreas and spleen appear normal. There is a left adrenal mass measuring 3.1 cm. There is a small fat containing umbilical hernia. No evidence of bowel obstruction. The appendix is visualized and appears normal. No retroperitoneal or mesenteric lymphadenopathy. The urinary bladder appears normal. The osseous structures are normal. IMPRESSION: 1. 3.1 CM LEFT ADRENAL MASS. 2. CONTRACTED GALLBLADDER. NO EVIDENCE FOR BOWEL OBSTRUCTION. 3. NO EVIDENCE OF APPENDICITIS. JOB NUMBER: [id number] [facility]
[2018-06-24] MEDS: NOVOLOG FLEXPEN (INSULIN ASPART) 100 UNITS/ML SQ SCH ×3 (10:23→22:01)
[2018-06-24] MEDS: METFORMIN 500 MG TABLET PO SCH ×2 (10:24→18:05)
[2018-06-24] MEDS: VENLAFAXINE ER 37.5 MG CAPSULE PO SCH (10:25)
[2018-06-24] MEDS: FOLIC ACID 1 MG TABLET PO SCH (10:25)
[2018-06-24] MEDS: ALPRAZOLAM 0.25 MG TABLET PO SCH (10:25)
[2018-06-24] MEDS: LEVEMIR FLEXTOUCH 100 UNIT/ML INSULIN PEN SQ SCH ×2 (10:27→21:53)
--- NOTE | 2018-06-24 11:23 | History & Physical ---
History of Present Illness - Date of Service Date of Service for History & Physical: 06/24/18 - History of Present Illness Admitting Diagnosis: Elevated lipase, intractable hiccups History of Present Illness: Mr. Musa is a 48 y/o male who presents to the ED with complaint of ongoing hiccups for the past several weeks. His symptoms have progressed since starting therapy for advanced lung cancer recently diagnosed. He has not had any shortness of breath, difficulty swallowing or cough. The patient has a recent diagnosis metastatic lung cancer diagnosed 4 weeks ago at [facility]. He has already begun radiation therapy for the last 2 weeks and is scheduled to begin chemotherapy within the next few weeks after radiation. He has a history of diabetes II which has been poorly controlled and not managed by a physician for more than a year. He says that he has been taking his sister's Metformin on an inconsistent basis and he has not been checking his fasting glucose levels. He has returned to [facility] ED twice since being diagnosed due to dehydration and is becoming much weaker after starting his radiation therapy. In [facility] ED the patient's labs showed an elevation in lipase, mild hyponatremia, and hyperglycemia. Abdominal CT was not suggestive of any acute findings and report reads contracted gall bladder and a 3.1cm adrenal mass. Repeat labs showed down trend in both glucose and lipase but the patient was admitted for further observation. On evaluation this morning the patient is awake and alert and still has some hiccups but denies cough or pain. He says that his last radiation session was Thursday and it went ok. Vitals in ED: BP 99/57 HR 80 RR 18 T 98 Sats 94% Travel Screening - Travel/Exposure Within Last 30 Days Have you traveled within the last 30 days?: No - Travel/Exposure Within Last Year Have you traveled outside the [place] in the last year?: No - Additonal Travel Details Have you been exposed to anyone with a communicable illness?: No - Travel Symptoms Symptom Screening: None Review of Systems Constitutional: Denies: Chills, Fever Eyes: Denies: Eye discharge ENT: Denies: Congestion Respiratory: Denies: Cough, Dyspnea Cardiovascular: Denies: Arrhythmia, Chest pain Endocrine: Denies: Fatigue Gastrointestinal: Reports: Nausea. Denies: Diarrhea, Vomiting Genitourinary: Denies: Dysuria Musculoskeletal: Denies: Arthralgia Past Medical History - SOCIAL HISTORY Smoking Status: Light tobacco smoker (<10/day) Alcohol Use: None Drug Use: None - RESPIRATORY Hx Respiratory Disorders: No - CARDIOVASCULAR Hx Cardio Disorders: No - NEURO Hx Neuro Disorders: Yes Hx Brain Tumor: Yes - GI Hx GI Disorders: Yes Hx Reflux: Yes - Hx Genitourinary Disorders: No - ENDOCRINE Hx Endocrine Disorders: Yes Hx Diabetes: Yes (DM2) - MUSCULOSKELETAL Hx Musculoskeletal Disorders: No - PSYCH Hx Psych Problems: Yes Hx Anxiety: Yes - HEMATOLOGY/ONCOLOGY Hx Hematology/Oncology Disorders: Yes Hx Cancer: Yes (Lung w/ mets to brain) Hx Chemotherapy: No Hx Radiation Therapy: Yes Family Medical History Any Significant Family History?: Yes Hx Cancer: Father Hx Diabetes: Mother H&P Meds/Allergies - Allergies Allergies: Allergies Allergy/AdvReac Type Severity Reaction Status Date / Time No Known Drug Allergies Allergy Unverified 06/17/18 08:01 - Home Medications Home Medications Medication Instructions Recorded Confirmed Last Taken Folic Acid 1 mg PO DAILY 06/23/18 06/24/18 Unknown - Active Medications Active Medications: Current Medications Acetaminophen (Tylenol 325mg) 650 mg PO Q4H PRN PRN Reason: PAIN - MILD(1-4)/FEVER Alprazolam (Xanax) 0.5 mg PO DAILY [facility] Last Admin: 06/24/18 10:25 Dose: 0.5 mg Folic Acid () 1 mg PO DAILY [facility] Last Admin: 06/24/18 10:25 Dose: 1 mg Potassium Chloride/Dextrose/Sod Cl () 20 meq in 1,000 mls @ 75 mls/hr IV NOW ONE Stop: 06/24/18 16:26 Last Admin: 06/24/18 03:57 Dose: 75 mls/hr Insulin Aspart (Novolog Flexpen) 8 unit SQ TID [facility] Last Admin: 06/24/18 10:23 Dose: 8 unit Insulin Detemir (Levemir Flextouch) 40 unit SQ BID [facility] Last Admin: 06/24/18 10:27 Dose: 40 unit Metformin HCl (Glucophage Ir) 1,000 mg PO BIDWM [facility] Last Admin: 06/24/18 10:24 Dose: 1,000 mg Ondansetron HCl (Zofran) 4 mg IVP Q4H PRN PRN Reason: NAUSEA Pantoprazole Sodium (Protonix Iv) 40 mg IVP Q24H [facility] Last Admin: 06/24/18 03:56 Dose: 40 mg Patient Own Med: (Dexamethasone 4mg) 1 each MC BIDWM [facility] Patient Own Med: (Mirapex) 1 each PO QHS [facility] Venlafaxine HCl (Effexor Xr) 37.5 mg PO DAILY [facility] Last Admin: 06/24/18 10:25 Dose: 37.5 mg Physical Exam - Vital Signs Vital Signs: Vital Signs - Last 24 Hrs Temp Pulse Resp BP Pulse Ox 06/24/18 09:00 80 18 06/24/18 05:00 80 18 99/57 94 L 06/24/18 03:05 98 F 80 18 115/73 93 L 06/24/18 03:00 98.3 F 72 18 105/71 95 06/24/18 01:39 83 20 112/81 93 L 06/23/18 23:55 98.1 F 84 24 114/83 94 L - General General Appearance: Alert, Cooperative, No acute distress Limitations: No limitations - Head Head exam: Atraumatic, Normocephalic, Normal inspection - Eye Eye exam: Normal appearance, PERRL, EOMI - ENT Throat exam: Normal inspection. negative: Tonsillar erythema, Tonsillar exudate - Neck Neck exam: Normal inspection, Full ROM. negative: Tenderness - Respiratory Respiratory exam: Normal lung sounds bilaterally. negative: Respiratory distress - Cardiovascular Cardiovascular Exam: Regular rate, Normal rhythm, Normal heart sounds - GI/Abdominal GI/Abdominal exam: Soft, Normal bowel sounds. negative: Tenderness - Extremities Extremities exam: Normal inspection, Full ROM, Normal capillary refill. negative: Tenderness - Back Back exam: Reports: Normal inspection - Neurological Neurological exam: Alert, Oriented X3. negative: Altered, Motor sensory deficit Results - Labs Result Diagrams: 06/24/18 06:06 06/24/18 06:06 Labs Last 24 Hours: Laboratory Results - last 24 hr 06/24/18 06/24/18 06/24/18 00:20 00:20 05:18 WBC 10.9 RBC 4.94 Hgb 16.3 Hct 44.9 MCV 90.9 MCH 33.0 MCHC 36.3 H RDW 12.6 Plt Count 69 L MPV 10.1 Neutrophils % 92.0 H Lymphocytes % Denture Processor Monocytes % Denture Processor Eosinophils % Denture Processor Basophils % Denture Processor Lymphocytes 4.0 L Monocytes 2.0 Metamyelocytes 2.0 Platelet Estimate Decreased Sodium 131 L Potassium 4.7 H Chloride 91 L Carbon Dioxide 27.0 Anion Gap 13.0 BUN 19 Creatinine 0.5 L Estimated GFR > 60 POC Glucose 229 H Random Glucose 354 H Calcium 9.2 Total Bilirubin 1.20 H Direct Bilirubin < 0.2 AST 15 ALT 38 Alkaline Phosphatase 83 Total Protein 6.2 L Albumin 3.9 L Lipase 411 H 06/24/18 06/24/18 06:06 06:06 WBC 8.5 RBC 4.60 Hgb 15.2 Hct 42.0 MCV 91.3 MCH 33.0 MCHC 36.2 H RDW 12.5 Plt Count 63 L MPV 9.9 Neutrophils % 93.0 H Lymphocytes % Denture Processor Monocytes % Denture Processor Eosinophils % Denture Processor Basophils % Denture Processor Lymphocytes 5.0 L Monocytes 1.0 Metamyelocytes 1.0 Platelet Estimate Decreased Sodium 135 L Potassium 3.9 Chloride 98 Carbon Dioxide 26.0 Anion Gap 11.0 BUN 17 Creatinine 0.5 L Estimated GFR > 60 POC Glucose Random Glucose 244 H Calcium 8.7 Total Bilirubin Direct Bilirubin AST ALT Alkaline Phosphatase Total Protein Albumin Lipase 162 H VTE H&P Assessment - Risk for VTE Risk for VTE: No Risk Level: High Risk Assessment Date: 06/24/18 Risk Assessment Time: 12:12 VTE Orders Placed or Will Be Placed: No VTE Reason for No Prophylaxis: Complication of Medical Care (low platelets ) Plan - Inpatient Certification Inpatient Certification: Revert to Obs status - Detailed Diagnosis and Plan (1) Intractable hiccups Current Visit: Yes Status: Acute Base Code: R06.6 - HICCOUGH Comment: 06/24/18: - intermittent hiccups for > 3 weeks. No cough, SOB or dysphagia. - Baclofen 5mg TID PRN ordered. (2) Serum lipase elevation Current Visit: Yes Status: Acute Base Code: R74.8 - ABNORMAL LEVELS OF OTHER SERUM ENZYMES Comment: 06/24/18: - elevated lipase 162, no evidence of pancreatitis on Ct abdomen. Possible effects of radiation vs, metastatic disease. - Tox screen negative. (3) Diabetes mellitus type II, uncontrolled Current Visit: Yes Status: Acute Qualifiers: Diabetes mellitus halfway insulin use: unspecified halfway insulin use status Base Code: E11.65 - TYPE 2 DIABETES MELLITUS WITH HYPERGLYCEMIA Comment: 06/24/18: - Hab1c 9.8%, random glucose 244, POC 209. Target range < 180 while in hospital. - Metformin 1000mg BID, Novolog 8 units TIDAC, Levemir 40 units BID. - RAINA/Statin added daily. - Tight glycemic control since pt on Decadron 4mg BID for brain mets. - ADA diet/ Diabetic education. (4) Thrombocytopenia Current Visit: Yes Status: Acute Base Code: D69.6 - THROMBOCYTOPENIA, UNSPECIFIED Comment: 06/24/18: - Plts 63, no active bleeding. Possibly due to medications vs infection. - continue to monitor CBC w/ diff. (5) Stage IV adenocarcinoma of lung Current Visit: Yes Status: Acute Base Code: C34.90 - MALIGNANT NEOPLASM OF UNSP PART OF UNSP BRONCHUS OR LUNG Comment: 06/24/18: - recent diagnosis of stage IV lung adenocarcinoma with mets to the BROADBAND ENGINEER and left adrenal gland. - under active radiation therapy and pending systemic chemotherapy with Carboplatin, Pemetrexed and pembrolizumab. - Follows with Dr. Bland [facility] Oncology at [facility]. - Recommend home health services, SW consult, Dietary consult. (6) Metastatic adenocarcinoma to brain Current Visit: Yes Status: Acute Base Code: C79.31 - SECONDARY MALIGNANT NEOPLASM OF BRAIN Comment: 06/24/18: - evidence of multiple brain mets. - currently undergoing radiation therapy and is also on Decadron 4mg BID. (7) Anxiety and depression Current Visit: Yes Status: Acute Base Code: F41.9 - ANXIETY DISORDER, UNSPECIFIED; F32.9 - MAJOR DEPRESSIVE DISORDER, SINGLE EPISODE, UNSPECIFIED Comment: 06/24/18: - Effexor 37.5mg daily. Xanax 0.5mg TID PRN. (8) DVT prophylaxis Current Visit: Yes Status: Acute Base Code: [id number] - Comment: 06/24/18: - pt high risk of DVT due to malignancy but plts low. - SCDs while in bed and encourage ambulation. (9) DNR (do not resuscitate) Current Visit: Yes Status: Acute Base Code: Z66 - DO NOT RESUSCITATE Comment: 06/24/18: - pt wishes to be DNR.
[2018-06-24] MEDS: ACETAMINOPHEN 325 MG TAB PO PRN ×2 (13:41→20:02)
[2018-06-24] MEDS: BACLOFEN 10 MG TABLET PO PRN (13:41)
[2018-06-24] MEDS: DEXAMETHASONE 2 MG MC SCH ×2 (13:42→18:06)
[2018-06-24] MEDS: ATORVASTATIN 20 MG TABLET PO SCH (22:00)
[2018-06-24] MEDS ORDERED: MIRAPEX PO SCH (22:00)
[2018-06-25 06:25] LABS: HEMATOCRIT 44.9 % (42.0-52.0); HEMOGLOBIN 16.4 gm/dl (14.0-18.0); MEAN CELL VOLUME 91.1 fl (81-97); MEAN CORPUSCULAR HEMOGLOBIN 33.3 pg (27-33); MEAN CORPUSCULAR HGB CONC 36.5 g/dl (32-36); MEAN PLATELET VOLUME 9.4 fl (7.4-10.4); PLATELET COUNT 62 K/uL (130-400); RED BLOOD COUNT 4.93 M/uL (4.40-5.70); RED CELL DISTRIBUTION WIDTH 12.5 % (11.5-14.5); WHITE BLOOD COUNT W/O DIFF 2.5 K/uL (4.2-12.2)
[2018-06-25] MEDS: PANTOPRAZOLE SODIUM IV 40 MG VIAL IVP SCH (06:25)
[2018-06-25 06:40] LABS: ALB/GLOB RATIO 1.2 (1.1-1.8); ALBUMIN 3.3 g/dL (4.0-5.0); ALKALINE PHOSPHATASE 70 U/L (40-129); ALT/SGPT 34 U/L (<41); AST/SGOT 16 U/L (10.0-50.0); BLOOD UREA NITROGEN 14 mg/dL (6-20); CREATININE 0.6 mg/dL (0.7-1.2); EST GLOMERULAR FILTRATION RATE > 60 mL/min; GLUCOSE,RANDOM 66 mg/dL (74-109); TOTAL PROTEIN 6.1 g/dL (6.6-8.7)
[2018-06-25] MEDS: METFORMIN 500 MG TABLET PO SCH ×2 (07:34→18:28)
[2018-06-25] MEDS: DEXAMETHASONE 2 MG MC SCH ×2 (08:10→18:42)
[2018-06-25] MEDS: FOLIC ACID 1 MG TABLET PO SCH (09:46)
[2018-06-25] MEDS: LISINOPRIL 5 MG TABLET PO SCH (09:46)
[2018-06-25] MEDS: VENLAFAXINE ER 37.5 MG CAPSULE PO SCH (09:47)
[2018-06-25] MEDS: ALPRAZOLAM 0.25 MG TABLET PO SCH (09:47)
[2018-06-25] MEDS: ACETAMINOPHEN 325 MG TAB PO PRN ×2 (09:47→21:47)
[2018-06-25] MEDS: LEVEMIR FLEXTOUCH 100 UNIT/ML INSULIN PEN SQ SCH ×2 (09:50→21:53)
[2018-06-25] MEDS: NOVOLOG FLEXPEN (INSULIN ASPART) 100 UNITS/ML SQ SCH ×3 (10:54→21:43)
--- NOTE | 2018-06-25 12:05 | Discharge Summary ---
Providers Discharge Summary Date: 06/26/18 Date of admission: 06/24/18 02:37 Attending physician: SIERRA FLOREZ Primary care physician: SIERRA FLOREZ Physical Exam - Vital Signs Vital Signs: Vital Signs - Last 24 Hrs Temp Pulse Pulse Resp BP BP BP 06/25/18 10:30 99.9 F H 118 H 18 105/57 06/25/18 08:22 20 06/25/18 08:07 98.4 F 107 H 18 100/55 06/24/18 21:00 98.5 F 82 82 18 104/67 06/24/18 17:00 99.0 F 84 18 93/65 06/24/18 13:25 99.6 F 105/67 06/24/18 13:00 99.6 F 87 18 105/67 Pulse Ox 06/25/18 10:30 93 L 06/25/18 08:22 06/25/18 08:07 93 L 06/24/18 21:00 99 06/24/18 17:00 98 06/24/18 13:25 06/24/18 13:00 96 - General General Appearance: Alert, Cooperative, No acute distress Limitations: No limitations - Head Head exam: Atraumatic, Normocephalic, Normal inspection - Eye Eye exam: Normal appearance, PERRL, EOMI - ENT Throat exam: Normal inspection. negative: Tonsillar erythema, Tonsillar exudate - Neck Neck exam: Normal inspection, Full ROM. negative: Tenderness - Respiratory Respiratory exam: Normal lung sounds bilaterally. negative: Respiratory distress - Cardiovascular Cardiovascular Exam: Regular rate, Normal rhythm, Normal heart sounds - GI/Abdominal GI/Abdominal exam: Soft, Normal bowel sounds. negative: Tenderness - Extremities Extremities exam: Normal inspection, Full ROM, Normal capillary refill. negative: Tenderness - Back Back exam: Reports: Normal inspection - Neurological Neurological exam: Alert, Oriented X3. negative: Altered, Motor sensory deficit Hospitalization - Hospitalization Admission Diagnosis: Elevated lipase, intractable hiccups - Problem List/Discharge Diagnosis (1) Hypoglycemia Current Visit: Yes Status: Acute Base Code: E16.2 - HYPOGLYCEMIA, UNSPECIFIED Comment: 06/26/15: - POC glucose, critical lab 48 --97 after given juice. POC-CBG in the 50s on multiple draws. - check electrolytes, serum insulin, cortisol and hold all insulin. - possible mets with pancreratic involvement or as a result of brain mets. - concern for adrenal insufficiency. (2) Intractable hiccups Current Visit: Yes Status: Acute Base Code: R06.6 - HICCOUGH Comment: 06/26/18: - intermittent hiccups for > 3 weeks. No cough, SOB or dysphagia. - Baclofen 5mg TID PRN ordered. (3) Serum lipase elevation Current Visit: Yes Status: Acute Base Code: R74.8 - ABNORMAL LEVELS OF OTHER SERUM ENZYMES Comment: 06/26/18: - last lipase 162, no evidence of pancreatitis on Ct abdomen. Possible effects of radiation vs, metastatic disease. - Tox screen negative. Recheck lipase stat (4) Diabetes mellitus type II, uncontrolled Current Visit: Yes Status: Acute Discharge Diagnosis: Diabetes mellitus [facility] insulin use: unspecified [facility] insulin use status Base Code: E11.65 - TYPE 2 DIABETES MELLITUS WITH HYPERGLYCEMIA Comment: 06/26/18: - Hab1c 9.8%, random glucose 244, POC 209. Target range < 180 while in hospital. - Metformin 1000mg BID, hold basal insulin dosing and keep sliding scale. - RAINA/Statin added daily. - pt on Decadron 4mg BID for brain mets. - ADA diet/ Diabetic education. - Pt has not been eating and had episodes of hypoglycemia in the 50s, CBG this morning 66. 06/26: critical lab POC glucose 45. (5) Thrombocytopenia Current Visit: Yes Status: Acute Base Code: D69.6 - THROMBOCYTOPENIA, UNSPECIFIED Comment: 06/26/18: - Plts 63 -->62, no active bleeding. Possibly due to medications vs infection. - continue to monitor CBC w/ diff. (6) Stage IV adenocarcinoma of lung Current Visit: Yes Status: Acute Base Code: C34.90 - MALIGNANT NEOPLASM OF UNSP PART OF UNSP BRONCHUS OR LUNG Comment: 06/26/18: - recent diagnosis of stage IV lung adenocarcinoma with mets to the FREEZING ROOM WORKER and left adrenal gland. - under active radiation therapy and pending systemic chemotherapy with Carboplatin, Pemetrexed and pembrolizumab. - Follows with Dr. Bland [facility] Oncology at [facility]. - Recommend home health services, SW consult, Dietary consult. - Chemotherapy moved to Thu. As per Oncology Dr. Moe (7) Metastatic adenocarcinoma to brain Current Visit: Yes Status: Acute Base Code: C79.31 - SECONDARY MALIGNANT NEOPLASM OF BRAIN Comment: 06/26/18: - evidence of multiple brain mets. - currently undergoing radiation therapy and is also on Decadron 4mg BID. (8) Anxiety and depression Current Visit: Yes Status: Acute Base Code: F41.9 - ANXIETY DISORDER, UNSPECIFIED; F32.9 - MAJOR DEPRESSIVE DISORDER, SINGLE EPISODE, UNSPECIFIED Comment: 06/26/18: - Effexor 37.5mg daily. Xanax 0.5mg TID PRN. (9) DVT prophylaxis Current Visit: Yes Status: Acute Base Code: [id number] - Comment: 06/26/18: - pt high risk of DVT due to malignancy but plts low. - SCDs while in bed and encourage ambulation. (10) DNR (do not resuscitate) Current Visit: Yes Status: Acute Base Code: Z66 - DO NOT RESUSCITATE Comment: 06/26/18: - pt wishes to be DNR. - Disposition Poor prognosis. Transfer to [facility] for further workup. - Hospitalization Course Hospital Course: Mr. Musa is a 48 y/o male who presents to the ED with complaint of ongoing hiccups for the past several weeks. His symptoms have progressed since starting therapy for advanced lung cancer recently diagnosed. He has not had any shortness of breath, difficulty swallowing or cough. The patient has a recent diagnosis metastatic lung cancer diagnosed 4 weeks ago at [facility]. He has already begun radiation therapy for the last 2 weeks and is scheduled to begin chemotherapy within the next few weeks after radiation. He has a history of diabetes II which has been poorly controlled and not managed by a physician for more than a year. He says that he has been taking his sister's Metformin on an inconsistent basis and he has not been checking his fasting glucose levels. He has returned to [facility] ED twice since being diagnosed due to dehydration and is becoming much weaker after starting his radiation therapy. In [facility] ED the patient's labs showed an elevation in lipase, mild hyponatremia, and hyperglycemia. Abdominal CT was not suggestive of any acute findings and report reads contracted gall bladder and a 3.1cm adrenal mass. Repeat labs showed down trend in both glucose and lipase but the patient was admitted for further observation. On evaluation this morning the patient is awake and alert and still has some hiccups but denies cough or pain. He says that his last radiation session was Thursday and it went ok. 06/25/18: The patient is alert, awake and in no distress. On examination the patient does not complain of pain or respiratory distress. He has had readings of hypoglycemia last night and this morning. He has not been eating very much and his insulin has been held. The patient's sister reports that they have been in touch with Dr. Moe his Oncologist and considering his decline they would want to move his chemotherapy up to next week. I discussed the possibility of Palliative/hospice care with the patient and his family and they would like to consider it once he is home with home health. 06/26/18: The patient's discharge was discontinued due to concern for continuous hypoglycemia despite insulin and oral hypogylcemics being held. This morning his random glucose is 48 and he appears more confused. He is hemodynamically stable but blood pressure has decreased on average since admission. Transfer to [facility] is appropriate at this point to determine if his drop in serum glucose is due to adrenal insufficiency and for further management of his stage IV lung adenocarcinoma. Addendum: (As per Med/Surg Nurse) 2:21 pm EMS has arrived to transport patient and his oxygen saturation and blood pressure has dropped. The patient is also tachycardic in the 120s. EMS to transport with ALS orders. Vitals in ED: BP 99/57 HR 80 RR 18 T 98 Sats 94% Procedures: Imaging and X-Rays 06/24/18 01:03 ABDOMEN/PELVIS WO CONTRAST [CT] Stat Abnormal Labs: Abnormal Lab Results 06/24/18 06/24/18 06/24/18 Range/Units 00:20 00:20 05:18 WBC (4.2-12.2) K/uL MCH (27-33) pg MCHC 36.3 H (32-36) g/dl Plt Count 69 L (130-400) K/uL Neutrophils % 92.0 H (47-80) % Lymphocytes 4.0 L (16-45) % Sodium 131 L (136-145) mmol/L Potassium 4.7 H (3.4-4.5) mmol/L Chloride 91 L (98-107) mmol/L Creatinine 0.5 L (0.7-1.2) mg/dL POC Glucose 229 H (70-110) mg/dL Random Glucose 354 H (74-109) mg/dL Total Bilirubin 1.20 H (0.2-1.0) mg/dL Total Protein 6.2 L (6.6-8.7) g/dL Albumin 3.9 L (4.0-5.0) g/dL Lipase 411 H (13-60) U/L 06/24/18 06/24/18 06/24/18 Range/Units 06:06 06:06 16:50 WBC (4.2-12.2) K/uL MCH (27-33) pg MCHC 36.2 H (32-36) g/dl Plt Count 63 L (130-400) K/uL Neutrophils % 93.0 H (47-80) % Lymphocytes 5.0 L (16-45) % Sodium 135 L (136-145) mmol/L Potassium (3.4-4.5) mmol/L Chloride (98-107) mmol/L Creatinine 0.5 L (0.7-1.2) mg/dL POC Glucose 52 L (70-110) mg/dL Random Glucose 244 H (74-109) mg/dL Total Bilirubin (0.2-1.0) mg/dL Total Protein (6.6-8.7) g/dL Albumin (4.0-5.0) g/dL Lipase 162 H (13-60) U/L 06/25/18 06/25/18 06/25/18 Range/Units 06:05 06:05 07:10 WBC 2.5 L (4.2-12.2) K/uL MCH 33.3 H (27-33) pg MCHC 36.5 H (32-36) g/dl Plt Count 62 L (130-400) K/uL Neutrophils % 83.0 H (47-80) % Lymphocytes 11.0 L (16-45) % Sodium 135 L (136-145) mmol/L Potassium (3.4-4.5) mmol/L Chloride 96 L (98-107) mmol/L Creatinine 0.6 L (0.7-1.2) mg/dL POC Glucose 55 L (70-110) mg/dL Random Glucose 66 L (74-109) mg/dL Total Bilirubin 1.50 H (0.2-1.0) mg/dL Total Protein 6.1 L (6.6-8.7) g/dL Albumin 3.3 L (4.0-5.0) g/dL Lipase (13-60) U/L Condition at Discharge: (2) Stable Discharge Medications - Discharge Medications Prescriptions: Baclofen [Lioresal] 5 mg PO TID PRN #45 tab PRN Reason: Hiccups Home Medications: Ambulatory Orders Acetaminophen 325 mg PO 3-4XD tab 06/17/18 [Last Taken Unknown] Alprazolam 0.5 mg PO DAILY 30 Days #90 tab MDD 3 06/17/18 [Last Taken Unknown] Dexamethasone 4 mg PO BID 30 Days #60 tab 06/17/18 [Last Taken Unknown] Pantoprazole Sodium [Protonix] 40 mg PO DAILY 30 Days tab. MDD 1 06/17/18 [ Last Taken Unknown] Folic Acid 1 mg PO DAILY 06/23/18 [Last Taken Unknown] Baclofen [Lioresal] 5 mg PO TID PRN #45 tab 06/25/18 [Last Taken Unknown] Insulin Glargine,Hum.rec.anlog [Lantus Solostar] 35 unit SQ DAILY 30 Days #1 box 06/25/18 [Last Taken Unknown] Lisinopril [Zestril] 2.5 mg PO DAILY tablet 06/25/18 [Last Taken Unknown] Discharge Plan - Discharge Instructions Activity at Discharge: Resume Usual Activities As Tolerated Diet at Discharge: Diabetic Diet Additional Instructions: -Follow up with Dr. Florez as scheduled on 07/14/18 at 8:20AM at [facility]. -Appointment at the [facility] as scheduled to begin chemotherapy on Friday 06/29 at 11:30. -Lida Gruber, fruit farmworker, will meet with you on the day of your appointment. Her phone number is [phone]. -Your Medicaid Executive Chairman Of The Board at [facility] has changed to Ade Sin, . -Prescriptions have been transferred to [facility] in [place]. Please call them on day of discharge at to go over medications. They will deliver medications to your home. -Resources have been provided for transportation to appointments and medical equipment. Quality Measures - Quality Measures Quality Measures: Documentation of Current Medications in Medical Record, Screening for High Blood Pressure and F/U Documented - Current Medications Quality Measure: Measure #130: Documentation of Current Medications Documentation of Current Medications: <Current Medications Documented/Reviewed> [G8427] - Blood Pressure Screening Quality Measure: Screening for High Blood Pressure and Follow-Up Documented Does Patient Have Any of the Following: No Blood Pressure Classification: Normal BP Reading Systolic Measurement: 105 Diastolic Measurement: 67 Screening for High Blood Pressure: < Normal BP, F/U Not Required > [G8783] - Elder Abuse Suspicion Index EASI Reference Information: Fareed CANTRELL, Gaye C, Mariza D, Earl Bowen.Development and validation of a tool to assist physicians identification of elder abuse: The Elder Abuse Suspicion Index (EASI ). Journal of Elder Abuse and Neglect, 2008; 20 (3): 276-300.
[2018-06-25] MEDS ORDERED: 0.9 % SODIUM CHLORIDE 1,000 ML BAG IV ONE (16:44)
--- NOTE | 2018-06-25 16:44 | Physician Progress Note ---
Subjective - Date Date of Physician Progress Note: 06/25/18 - Subjective Subjective Comment: The patient appears more somnolent but says that he is feeling ok. He has been sleeping for most of the day and not eating very much. His hiccups are persistent although they have slowed down. He is having some headaches intermittently but denies pain, shortness of breath, dizziness. Objective - Vital Signs Vital Signs: Vital Signs - Last 24 Hrs Temp Pulse Pulse Resp BP BP Pulse Ox 06/25/18 15:00 99.0 F 98 H 18 71/41 73/43 94 L 06/25/18 10:30 99.9 F H 118 H 18 105/57 93 L 06/25/18 08:22 20 06/25/18 08:07 98.4 F 107 H 18 100/55 93 L 06/24/18 21:00 98.5 F 82 82 18 104/67 99 06/24/18 17:00 99.0 F 84 18 93/65 98 - General General Appearance: Alert, Cooperative, No acute distress Limitations: No limitations - Head Head exam: Atraumatic, Normocephalic, Normal inspection - Eye Eye exam: Normal appearance, PERRL, EOMI - ENT Throat exam: Normal inspection. negative: Tonsillar erythema, Tonsillar exudate - Neck Neck exam: Normal inspection, Full ROM. negative: Tenderness - Respiratory Respiratory exam: Normal lung sounds bilaterally. negative: Respiratory distress - Cardiovascular Cardiovascular Exam: Regular rate, Normal rhythm, Normal heart sounds - GI/Abdominal GI/Abdominal exam: Soft, Normal bowel sounds. negative: Tenderness - Extremities Extremities exam: Normal inspection, Full ROM, Normal capillary refill. negative: Tenderness - Back Back exam: Reports: Normal inspection - Neurological Neurological exam: Alert, Oriented X3. negative: Altered, Motor sensory deficit Assessment and Plan - Assessment and Plan (1) Intractable hiccups Current Visit: Yes Status: Acute Base Code: R06.6 - HICCOUGH Comment: 06/25/18: - intermittent hiccups for > 3 weeks. No cough, SOB or dysphagia. - Baclofen 5mg TID PRN ordered. (2) Serum lipase elevation Current Visit: Yes Status: Acute Base Code: R74.8 - ABNORMAL LEVELS OF OTHER SERUM ENZYMES Comment: 06/25/18: - elevated lipase 162, no evidence of pancreatitis on Ct abdomen. Possible effects of radiation vs, metastatic disease. - Tox screen negative. (3) Diabetes mellitus type II, uncontrolled Current Visit: Yes Status: Acute Qualifiers: Diabetes mellitus terminal operator insulin use: unspecified terminal operator insulin use status Base Code: E11.65 - TYPE 2 DIABETES MELLITUS WITH HYPERGLYCEMIA Comment: 06/25/18: - Hab1c 9.8%, random glucose 244, POC 209. Target range < 180 while in hospital. - Metformin 1000mg BID, hold basal insulin dosing and keep sliding scale. - RAINA/Statin added daily. - Tight glycemic control since pt on Decadron 4mg BID for brain mets. - ADA diet/ Diabetic education. - Pt has not been eating and had episodes of hypoglycemia in the 50s, CBG this morning 66. (4) Thrombocytopenia Current Visit: Yes Status: Acute Base Code: D69.6 - THROMBOCYTOPENIA, UNSPECIFIED Comment: 06/25/18: - Plts 63 -->62, no active bleeding. Possibly due to medications vs infection. - continue to monitor CBC w/ diff. (5) Stage IV adenocarcinoma of lung Current Visit: Yes Status: Acute Base Code: C34.90 - MALIGNANT NEOPLASM OF UNSP PART OF UNSP BRONCHUS OR LUNG Comment: 06/25/18: - recent diagnosis of stage IV lung adenocarcinoma with mets to the [employer] and left adrenal gland. - under active radiation therapy and pending systemic chemotherapy with Carboplatin, Pemetrexed and pembrolizumab. - Follows with Dr. [facility] at [facility]. - Recommend home health services, SW consult, Dietary consult. - Chemotherapy moved to Thu. As per Oncology Dr. Moe (6) Metastatic adenocarcinoma to brain Current Visit: Yes Status: Acute Base Code: C79.31 - SECONDARY MALIGNANT NEOPLASM OF BRAIN Comment: 06/25/18: - evidence of multiple brain mets. - currently undergoing radiation therapy and is also on Decadron 4mg BID. (7) Anxiety and depression Current Visit: Yes Status: Acute Base Code: F41.9 - ANXIETY DISORDER, UNSPECIFIED; F32.9 - MAJOR DEPRESSIVE DISORDER, SINGLE EPISODE, UNSPECIFIED Comment: 06/25/18: - Effexor 37.5mg daily. Xanax 0.5mg TID PRN. (8) DVT prophylaxis Current Visit: Yes Status: Acute Base Code: [id number] - Comment: 06/25/18: - pt high risk of DVT due to malignancy but plts low. - SCDs while in bed and encourage ambulation. (9) DNR (do not resuscitate) Current Visit: Yes Status: Acute Base Code: Z66 - DO NOT RESUSCITATE Comment: 06/25/18: - pt wishes to be DNR. Results - Labs Result Diagrams: 06/25/18 06:05 06/25/18 12:10 Labs Last 24 Hours: Laboratory Results - last 24 hr 06/24/18 06/24/18 06/24/18 16:50 17:25 22:56 WBC RBC Hgb Hct MCV MCH MCHC RDW Plt Count MPV Neutrophils % Band Neutrophils % Eosinophils % Basophils % Lymphocytes Monocytes Basophils Eosinophil Count Sodium Potassium Chloride Carbon Dioxide Anion Gap BUN Creatinine Estimated GFR POC Glucose 52 L 70 109 Random Glucose Calcium Total Bilirubin AST ALT Alkaline Phosphatase Total Protein Albumin Globulin Albumin/Globulin Ratio 06/25/18 06/25/18 06/25/18 06:05 06:05 07:10 WBC 2.5 L RBC 4.93 Hgb 16.4 Hct 44.9 MCV 91.1 MCH 33.3 H MCHC 36.5 H RDW 12.5 Plt Count 62 L MPV 9.4 Neutrophils % 83.0 H Band Neutrophils % 2.0 Eosinophils % Not Reportable Basophils % Not Reportable Lymphocytes 11.0 L Monocytes 4.0 Basophils 0.0 Eosinophil Count 0.0 Sodium 135 L Potassium 3.6 Chloride 96 L Carbon Dioxide 25.0 Anion Gap 14.0 BUN 14 Creatinine 0.6 L Estimated GFR > 60 POC Glucose 55 L Random Glucose 66 L Calcium 9.0 Total Bilirubin 1.50 H AST 16 ALT 34 Alkaline Phosphatase 70 Total Protein 6.1 L Albumin 3.3 L Globulin 2.8 Albumin/Globulin Ratio 1.2 06/25/18 06/25/18 06/25/18 07:35 10:30 11:55 WBC RBC Hgb Hct MCV MCH MCHC RDW Plt Count MPV Neutrophils % Band Neutrophils % Eosinophils % Basophils % Lymphocytes Monocytes Basophils Eosinophil Count Sodium Potassium Chloride Carbon Dioxide Anion Gap BUN Creatinine Estimated GFR POC Glucose 72 81 49 L* Random Glucose Calcium Total Bilirubin AST ALT Alkaline Phosphatase Total Protein Albumin Globulin Albumin/Globulin Ratio 06/25/18 06/25/18 06/25/18 12:10 12:35 14:00 WBC RBC Hgb Hct MCV MCH MCHC RDW Plt Count MPV Neutrophils % Band Neutrophils % Eosinophils % Basophils % Lymphocytes Monocytes Basophils Eosinophil Count Sodium Potassium Chloride Carbon Dioxide Anion Gap BUN Creatinine Estimated GFR POC Glucose 136 H 88 Random Glucose 93 Calcium Total Bilirubin AST ALT Alkaline Phosphatase Total Protein Albumin Globulin Albumin/Globulin Ratio DVT/PE Assessment - Risk for VTE Risk for VTE: No Risk Level: High Risk Assessment Date: 06/24/18 Risk Assessment Time: 12:12 VTE Orders Placed or Will Be Placed: No VTE Reason for No Prophylaxis: Complication of Medical Care (low platelets ) - Active Medicaitons Current Medications: Current Medications Acetaminophen (Tylenol 325mg) 650 mg PO Q4H PRN PRN Reason: PAIN - MILD(1-4)/FEVER Last Admin: 06/25/18 09:47 Dose: 650 mg Alprazolam (Xanax) 0.5 mg PO DAILY [facility] Last Admin: 06/25/18 09:47 Dose: 0.5 mg Atorvastatin Calcium (Lipitor) 40 mg PO QHS [facility] Last Admin: 06/24/18 22:00 Dose: 40 mg Baclofen (Lioresal) 5 mg PO TID PRN PRN Reason: HICCUPS Last Admin: 06/24/18 13:41 Dose: 5 mg Folic Acid () 1 mg PO DAILY [facility] Last Admin: 06/25/18 09:46 Dose: 1 mg Insulin Aspart (Novolog Flexpen) 8 unit SQ TID [facility] Last Admin: 06/25/18 15:48 Dose: Not Given Insulin Detemir (Levemir Flextouch) 40 unit SQ BID [facility] Last Admin: 06/25/18 09:50 Dose: Not Given Lisinopril (Zestril) 2.5 mg PO DAILY [facility] Last Admin: 06/25/18 09:46 Dose: 2.5 mg Metformin HCl (Glucophage Ir) 1,000 mg PO BIDWM [facility] Last Admin: 06/25/18 07:34 Dose: Not Given Ondansetron HCl (Zofran) 4 mg IVP Q4H PRN PRN Reason: NAUSEA Pantoprazole Sodium (Protonix Iv) 40 mg IVP Q24H [facility] Last Admin: 06/25/18 06:25 Dose: 40 mg Patient Own Med: (Dexamethasone 2mg) 2 each MC BIDWM [facility] Last Admin: 06/25/18 08:10 Dose: 2 each Venlafaxine HCl (Effexor Xr) 37.5 mg PO DAILY [facility] Last Admin: 06/25/18 09:47 Dose: 37.5 mg AMI Plan - Labs Result Diagrams: 06/25/18 06:05 06/25/18 12:10
[2018-06-25] MEDS: SODIUM CHLORIDE 0.9% 500 ML IV ONE (18:09)
[2018-06-25] MEDS: ATORVASTATIN 20 MG TABLET PO SCH (21:45)
[2018-06-25] MEDS: BACLOFEN 10 MG TABLET PO PRN (21:45)
[2018-06-26] MEDS ORDERED: PANTOPRAZOLE SODIUM IV 40 MG VIAL IVP SCH (07:00)
[2018-06-26] MEDS: METFORMIN 500 MG TABLET PO SCH (07:55)
[2018-06-26] MEDS: DEXAMETHASONE 2 MG MC SCH (08:00)
--- NOTE | 2018-06-26 08:45 | Physician Progress Note ---
Subjective - Date Date of Physician Progress Note: 06/26/18 - Subjective Subjective Comment: The patient appears more somnolent but says that he is feeling ok. He has been sleeping for most of the day and not eating very much. His hiccups are persistent although they have slowed down. He is having some headaches intermittently but denies pain, shortness of breath, dizziness. Objective - Vital Signs Vital Signs: Vital Signs - Last 24 Hrs Temp Pulse Pulse Resp BP BP Pulse Ox 06/26/18 08:19 76 20 06/26/18 04:00 97.6 F 103 H 20 92/50 96 06/25/18 20:00 98.0 F 103 H 20 84/45 93 L 06/25/18 15:00 99.0 F 98 H 18 71/41 73/43 94 L 06/25/18 10:30 99.9 F H 118 H 18 105/57 93 L - General General Appearance: Alert, Cooperative, No acute distress Limitations: No limitations - Head Head exam: Atraumatic, Normocephalic, Normal inspection - Eye Eye exam: Normal appearance, PERRL, EOMI - ENT Throat exam: Normal inspection. negative: Tonsillar erythema, Tonsillar exudate - Neck Neck exam: Normal inspection, Full ROM. negative: Tenderness - Respiratory Respiratory exam: Normal lung sounds bilaterally. negative: Respiratory distress - Cardiovascular Cardiovascular Exam: Regular rate, Normal rhythm, Normal heart sounds - GI/Abdominal GI/Abdominal exam: Soft, Normal bowel sounds. negative: Tenderness - Extremities Extremities exam: Normal inspection, Full ROM, Normal capillary refill. negative: Tenderness - Back Back exam: Reports: Normal inspection - Neurological Neurological exam: Alert, Oriented X3. negative: Altered, Motor sensory deficit Assessment and Plan - Assessment and Plan (1) Hypoglycemia Current Visit: Yes Status: Acute Base Code: E16.2 - HYPOGLYCEMIA, UNSPECIFIED Comment: 06/26/15: - POC glucose, critical lab 48 --97 after given juice. - check electrolytes, serum insulin, cortisol and hold all insulin. - possible mets with pancreratic involvement or as a result of brain mets. (2) Intractable hiccups Current Visit: Yes Status: Acute Base Code: R06.6 - HICCOUGH Comment: 06/26/18: - intermittent hiccups for > 3 weeks. No cough, SOB or dysphagia. - Baclofen 5mg TID PRN ordered. (3) Serum lipase elevation Current Visit: Yes Status: Acute Base Code: R74.8 - ABNORMAL LEVELS OF OTHER SERUM ENZYMES Comment: 06/26/18: - last lipase 162, no evidence of pancreatitis on Ct abdomen. Possible effects of radiation vs, metastatic disease. - Tox screen negative. Recheck lipase stat (4) Diabetes mellitus type II, uncontrolled Current Visit: Yes Status: Acute Qualifiers: Diabetes mellitus [facility] insulin use: unspecified [facility] insulin use status Base Code: E11.65 - TYPE 2 DIABETES MELLITUS WITH HYPERGLYCEMIA Comment: 06/26/18: - Hab1c 9.8%, random glucose 244, POC 209. Target range < 180 while in hospital. - Metformin 1000mg BID, hold basal insulin dosing and keep sliding scale. - RAINA/Statin added daily. - pt on Decadron 4mg BID for brain mets. - ADA diet/ Diabetic education. - Pt has not been eating and had episodes of hypoglycemia in the 50s, CBG this morning 66. 06/26: critical lab POC glucose 45. (5) Thrombocytopenia Current Visit: Yes Status: Acute Base Code: D69.6 - THROMBOCYTOPENIA, UNSPECIFIED Comment: 06/26/18: - Plts 63 -->62, no active bleeding. Possibly due to medications vs infection. - continue to monitor CBC w/ diff. (6) Stage IV adenocarcinoma of lung Current Visit: Yes Status: Acute Base Code: C34.90 - MALIGNANT NEOPLASM OF UNSP PART OF UNSP BRONCHUS OR LUNG Comment: 06/26/18: - recent diagnosis of stage IV lung adenocarcinoma with mets to the [employer] and left adrenal gland. - under active radiation therapy and pending systemic chemotherapy with Carboplatin, Pemetrexed and pembrolizumab. - Follows with Dr. Bland [facility] On[facility] at [facility]. - Recommend home health services, SW consult, Dietary consult. - Chemotherapy moved to Thu. As per Oncology Dr. Moe (7) Metastatic adenocarcinoma to brain Current Visit: Yes Status: Acute Base Code: C79.31 - SECONDARY MALIGNANT NEOPLASM OF BRAIN Comment: 06/26/18: - evidence of multiple brain mets. - currently undergoing radiation therapy and is also on Decadron 4mg BID. (8) Anxiety and depression Current Visit: Yes Status: Acute Base Code: F41.9 - ANXIETY DISORDER, UNSPECIFIED; F32.9 - MAJOR DEPRESSIVE DISORDER, SINGLE EPISODE, UNSPECIFIED Comment: 06/26/18: - Effexor 37.5mg daily. Xanax 0.5mg TID PRN. (9) DVT prophylaxis Current Visit: Yes Status: Acute Base Code: [id number] - Comment: 06/26/18: - pt high risk of DVT due to malignancy but plts low. - SCDs while in bed and encourage ambulation. (10) DNR (do not resuscitate) Current Visit: Yes Status: Acute Base Code: Z66 - DO NOT RESUSCITATE Comment: 06/26/18: - pt wishes to be DNR. - Disposition Disposition: Poor prognosis. Likely will have to transfer to [facility] for further workup and management of lung ca by Oncology. Results - Labs Result Diagrams: 06/25/18 06:05 06/25/18 12:10 Labs Last 24 Hours: Laboratory Results - last 24 hr 06/25/18 06/25/18 06/25/18 10:30 11:55 12:10 POC Glucose 81 49 L* Random Glucose 93 06/25/18 06/25/18 06/25/18 12:35 14:00 17:00 POC Glucose 136 H 88 94 Random Glucose 06/25/18 06/26/18 06/26/18 22:00 06:30 07:00 POC Glucose 81 48 L* 97 Random Glucose DVT/PE Assessment - Risk for VTE Risk for VTE: No Risk Level: High Risk Assessment Date: 06/24/18 Risk Assessment Time: 12:12 VTE Orders Placed or Will Be Placed: No VTE Reason for No Prophylaxis: Complication of Medical Care (low platelets ) - Active Medicaitons Current Medications: Current Medications Acetaminophen (Tylenol 325mg) 650 mg PO Q4H PRN PRN Reason: PAIN - MILD(1-4)/FEVER Last Admin: 06/25/18 21:47 Dose: 650 mg Alprazolam (Xanax) 0.5 mg PO DAILY [facility] Last Admin: 06/25/18 09:47 Dose: 0.5 mg Atorvastatin Calcium (Lipitor) 40 mg PO QHS [facility] Last Admin: 06/25/18 21:45 Dose: 40 mg Baclofen (Lioresal) 5 mg PO TID PRN PRN Reason: HICCUPS Last Admin: 08/24/18 21:45 Dose: 5 mg Folic Acid () 1 mg PO DAILY [facility] Last Admin: 06/25/18 09:46 Dose: 1 mg Insulin Aspart (Novolog Flexpen) 8 unit SQ TID [facility] Last Admin: 06/25/18 21:43 Dose: Not Given Insulin Detemir (Levemir Flextouch) 40 unit SQ BID [facility] Last Admin: 06/25/18 21:53 Dose: Not Given Lisinopril (Zestril) 2.5 mg PO DAILY [facility] Last Admin: 06/25/18 09:46 Dose: 2.5 mg Metformin HCl (Glucophage Ir) 1,000 mg PO BIDWM [facility] Last Admin: 06/26/18 07:55 Dose: Not Given Ondansetron HCl (Zofran) 4 mg IVP Q4H PRN PRN Reason: NAUSEA Pantoprazole Sodium (Protonix Iv) 40 mg IVP 0700 [facility] Last Admin: 06/26/18 08:00 Dose: 40 mg Patient Own Med: (Dexamethasone 2mg) 2 each MC BIDWM [facility] Last Admin: 06/26/18 08:00 Dose: 2 each Venlafaxine HCl (Effexor Xr) 37.5 mg PO DAILY [facility] Last Admin: 06/25/18 09:47 Dose: 37.5 mg AMI Plan - Labs Result Diagrams: 06/25/18 06:05 06/25/18 12:10
[2018-06-26] MEDS: NOVOLOG FLEXPEN (INSULIN ASPART) 100 UNITS/ML SQ SCH (09:04)
[2018-06-26] MEDS: LEVEMIR FLEXTOUCH 100 UNIT/ML INSULIN PEN SQ SCH (09:04)
[2018-06-26] MEDS: FOLIC ACID 1 MG TABLET PO SCH (09:11)
[2018-06-26] MEDS: VENLAFAXINE ER 37.5 MG CAPSULE PO SCH (09:12)
[2018-06-26] MEDS: ALPRAZOLAM 0.25 MG TABLET PO SCH (09:12)
[2018-06-26] MEDS: LISINOPRIL 5 MG TABLET PO SCH (09:28)
[2018-06-26] MEDS: ACETAMINOPHEN 325 MG TAB PO PRN (10:53)
== END 2018-06-26 14:30 | disposition short-term general hospital (02) | DRG 439 ==
LOC: ER 23:48 → INTOOBSV 06-24 02:37 → MEDSURG 06-24 02:37 → OBSVTOIN 06-24 02:37
PROVIDERS: ADMIT Internal Medicine; ATTEND Internal Medicine
DX: K85.90 Acute pancreatitis without necrosis or infection, unspecified (principal); C34.90 Malignant neoplasm of unspecified part of unspecified bronchus or lung; C79.31 Secondary malignant neoplasm of brain; R74.8 Abnormal levels of other serum enzymes; F41.8 Other specified anxiety disorders; D69.6 Thrombocytopenia, unspecified; K21.9 Gastro-esophageal reflux disease without esophagitis; E11.65 Type 2 diabetes mellitus with hyperglycemia; F17.210 Nicotine dependence, cigarettes, uncomplicated; Z66 Do not resuscitate
CPT/HCPCS: 36416; 74176; 80048; 80053; 80076; 82947; 82948; 83690; 85027; 87427; 87493; 94761; 96374; 96375; 99223; 99233; 99239; 99285; C9113; J1200; J2405; J2765; J3480; J7030